=== PATIENT | female | born 1935 | race Caucasian/White ===

== ENCOUNTER → 2019-11-16 | Outpatient (CLI) | payer OTHER ==
[~2019-11-16] VITALS: Ht 170.2 cm; Wt 92.5 kg
[~2019-11-16] MED LIST: APIX5TAB PO; ATOR20TA PO; LOSA25TA38 PO; METO25TA93 PO
== END | disposition home or self-care (01) ==
LOC: CATH 12:55 → EDSTATUS 11-21 12:15
PROVIDERS: ATTEND Specialist
DX: Z01.818 Encounter for other preprocedural examination (principal); F32.9 Major depressive disorder, single episode, unspecified; F41.9 Anxiety disorder, unspecified; Z11.59 Encounter for screening for other viral diseases; Z87.891 Personal history of nicotine dependence; Z98.890 Other specified postprocedural states; Z79.899 Other long term (current) drug therapy
CPT/HCPCS: 43239; 45380